=== PATIENT | female | born 1990 | race Two or more races ===

== ENCOUNTER 2019-03-30 15:07 | Emergency (ER) | payer MEDICAID, OTHER ==
[~2019-03-30] VITALS: Ht 162.6 cm; Wt 80.0 kg
[2019-03-30] MEDS ORDERED: KETOROLAC 30MG/ML VIAL IV ONE (17:30)
[2019-03-30] MEDS ORDERED: BACITRACIN ZINC OINT UDPKT TOP ONE (17:30)
[2019-03-30] MEDS ORDERED: LIDOCAINE 1%/EPI 1:100,000 10 ML VIAL IJ ONE (17:30)
[2019-03-30] MEDS ORDERED: LIDOCAINE HCL/EPINEPHRINE 1%-EPI 1:100,000 20 ML VIAL MC ONE (17:45)
[2019-03-30] MEDS ORDERED: BACITRACIN 15GM TUBE TOP ONE (17:45)
[2019-03-30] MEDS ORDERED: HYDROCODONE/ACETAMINOPHEN 5/325MG TABLET PO STA (19:27)
[2019-03-30] MEDS ORDERED: LIDOCAINE HCL/PF 1% 10 MG/ML 5ML VIAL IJ ONE (19:30)
[2019-03-30 19:42] VITALS: BP 132/86
== END 2019-03-30 22:00 | disposition home or self-care (01) ==
LOC: ER 16:36
DX: S71.111A Laceration without foreign body, right thigh, initial encounter (principal); W18.39XA Other fall on same level, initial encounter; Y93.89 Activity, other specified; Y92.89 Other specified places as the place of occurrence of the external cause; Y99.8 Other external cause status; F12.10 Cannabis abuse, uncomplicated; F41.9 Anxiety disorder, unspecified; I10 Essential (primary) hypertension
CPT/HCPCS: 12004; 73552; 96374; 99283; J1885; J3490